=== PATIENT | female | born 1985 | race Caucasian/White ===

== ENCOUNTER 2016-12-02 20:30 | Emergency (ER) | payer BC ==
[2016-12-02 20:41] VITALS: BP 138/96
[2016-12-02] MEDS ORDERED: Penicillin G Benzathine/Procaine 600-600 1.2 Millunits/2 ML Syringe IM ONE (21:19)
--- NOTE | 2016-12-02 21:22 | EDM.PDOC ---
ED HPI GENERAL MEDICAL PROBLEM - General Chief Complaint: General Stated Complaint: BACK PAIN, FEVER, DIZZY Time Seen by Provider: 12/02/16 21:19 Source of Information: Reports: Patient History Limitations: Reports: No limitations - History of Present Illness INITIAL COMMENTS - FREE TEXT/NARRATIVE: been feeling feverish dizzy sore throat passing out worsening LBP (chronic) all day. Left Lower Back Pain Score (Numeric/FACES): 8 - Related Data Allergies Allergy/AdvReac Type Severity Reaction Status Date / Time No Known Allergies Allergy Verified 12/02/16 20:36 Home Meds: Home Meds Gabapentin [Neurontin] 300 mg PO TID 12/02/16 [History] Hydrocodone/Acetaminophen [Hydrocodon-Acetaminophen 5-325] 1 each PO ASDIRECTED PRN 12/02/16 [History] Sertraline HCl [Sertraline HCl] 150 mg PO DAILY 12/02/16 [History] traZODone HCl [Trazodone HCl] 100 mg PO BEDTIME 12/02/16 [History] Past Medical History Musculoskeletal History: Reports: Back pain, chronic Psychiatric History: Reports: Anxiety, Depression - Infectious Disease History Infectious Disease History: Reports: Chicken pox - Past Surgical History Other HEENT Surgeries/Procedures: wisdom teeth GI Surgical History: Reports: Appendectomy Female Surgical History: Reports: section Social & Family History - Family History Family Medical History: Noncontributory - Tobacco Use Smoking Status *Q: Current Every Day Smoker Years of Tobacco use: 2 Packs/Tins Daily: 0.1 - Caffeine Use Caffeine Use: Reports: Coffee, Soda - Recreational Drug Use Recreational Drug Use: No ED ROS GENERAL - Review of Systems Review Of Systems: ROS reveals no pertinent complaints other than HPI. ED EXAM, GENERAL - Physical Exam Exam: See Below Exam Limited By: No limitations General Appearance: alert, WD/WN, anxious, mild distress Ears: normal external exam, normal canal, hearing grossly normal, normal TMs Nose: normal inspection Throat/Mouth: Normal voice, No airway compromise, Inflammation Head: atraumatic Neck: non-tender, full range of motion Respiratory/Chest: no respiratory distress Cardiovascular: regular rate, rhythm GI/Abdominal: soft, non tender Neurological: alert, oriented, normal cognition, normal gait, no motor/sensory deficits Psychiatric: anxious, flat affect, tearful Skin Exam: Warm, Dry Lymphatic: no adenopathy Course - Vital Signs Last Recorded V/S: Last Vital Signs Temp 38.2 C H 12/02/16 20:38 Pulse 136 H 12/02/16 20:38 Resp 24 H 12/02/16 20:38 BP 138/96 H 12/02/16 20:38 Pulse Ox 98 12/02/16 20:38 - Orders/Labs/Meds Labs: Laboratory Tests 12/02/16 12/02/16 Range/Units 20:54 20:54 Urine Color Yellow (YELLOW) Urine Appearance Clear (CLEAR) Urine pH 7.0 (5.0-9.0) Ur Specific [place] 1.020 (1.005-1.030) Urine Protein Trace H (NEGATIVE) Urine Glucose (UA) Negative (NEGATIVE) Urine Ketones Negative (NEGATIVE) Urine Occult Blood Moderate H (NEGATIVE) Urine Nitrite Negative (NEGATIVE) Urine Bilirubin Negative (NEGATIVE) Urine Urobilinogen 0.2 (0.2-1.0) mg/dL Ur Leukocyte Esterase Negative (NEGATIVE) Urine RBC 40-50 H /HPF Urine WBC 0-5 (0-5/HPF) /HPF Ur Epithelial Cells Moderate H /HPF Urine Bacteria Few (0-FEW/HPF) /HPF Urine Mucus Few H /LPF Urine HCG, Qual Negative Meds: Medications Discontinued Medications Generic Name Dose Route Start Last Admin Trade Name Doug PRN Reason Stop Dose Admin Penicillin G Procaine/Benzathine 1.2 millunits 12/02/16 21:19 Bicillin C-R 600/600 IM 12/02/16 21:20 ONETIME ONE - Re-Assessments/Exams Free Text/Narrative Re-Assessment/Exam: 12/02/16 21:24 results discussed with pt. and Pt's current situation also discussed with Pt & friend who feel presently they will go home and let the ABX control the infection and f/u as needed. Departure - Departure Time of Disposition: 21:26 Disposition: Home, Self-Care 01 Condition: good Clinical Impression: Strep throat Instructions: Strep Throat, [id number]-[id number] Forms: ED Department Discharge Additional Instructions: 1) rest 2) avoid solid foods and scratchy foods 3) have popsicle, jello, juice 4) take tylenol or motrin for fever 5) follow up at clinic or recheck as needed rx given: z-collins
== END 2016-12-02 21:45 | disposition home or self-care (01) ==
LOC: DL.ED 20:30
DX: J02.0 Streptococcal pharyngitis (principal); F41.9 Anxiety disorder, unspecified; F32.9 Major depressive disorder, single episode, unspecified; F17.210 Nicotine dependence, cigarettes, uncomplicated; Z90.49 Acquired absence of other specified parts of digestive tract; Z79.899 Other long term (current) drug therapy
CPT/HCPCS: 81001; 81025; 82962; 87430; 96372; 99284; J0558

== ENCOUNTER 2020-03-26 06:31 | Day surgery (SDC) | payer BC ==
[~2020-03-26 06:31] MED LIST: Dextrose 5%-0.45% NaCl 1,000 ML IV SCH; Midazolam 1 MG/ML 2 ML SDV ONE; Sodium Chloride 0.9% 10 ML Syringe FLUSH PRN; fentaNYL 100 MCG/2 ML SDV ONE
[2020-03-26] MEDS ORDERED: Midazolam 1 MG/ML 2 ML SDV IV ONE ×3 (06:32→07:37)
[2020-03-26] MEDS ORDERED: fentaNYL 100 MCG/2 ML SDV IV ONE ×3 (06:32→07:36)
[2020-03-26 09:44] VITALS: BP 115/65; PULSE 88
--- NOTE | 2020-03-26 13:21 | OR ---
DATE: 03/26/2020 PROCEDURE: Esophagogastroduodenoscopy and multiple pinch biopsies. INSTRUMENT USED: [id number] Olympus video panendoscope. PREMEDICATIONS: No oral or topical anesthesia used. Fentanyl 100 mcg intravenous, Versed 2 mg intravenous. Nasal O2 cannula. The procedure was done under pulse oximetry, BP recording, and cardiac monitoring. INDICATION: Diabetic patient with multiple abdominal symptoms, persistent in nature, not responsive to acid suppressants. The patient with known diabetes mellitus. Esophagogastroduodenoscopy is performed for detection of any active erosive lesions, Guan esophagus and/or malignancy also under consideration, H. pylori status to be determined, small bowel biopsies to be obtained for celiac disease if indicated, endoscopic hemostasis therapy if needed. DESCRIPTION OF PROCEDURE: The scope was passed with ease. Adequate visualization of the esophagus was made from proximal to distal areas. No upper esophageal lesions identified. No distal esophageal stricture. No uphill or downhill esophageal varices. No Nicci-Arroyo tear. No evidence of erosive esophagitis by [place] criteria. No esophageal polyp or tumor mass identified. Z-line was seen at around 40 cm distal to the oral verge, configuration consistent with grade 1 by ZAP classification. No proximal gastric varices noted. Gastric fundus examination by retroflexion showed no polypoid lesions. No gastric ulcer, malignant mass, or vascular ectasia identified. Duodenal bulb showed no ulcer. Visualized second part of the duodenum was unremarkable. Multiple pinch biopsies, 4 in number, were taken from different areas of the second part of the duodenum and tissues were also obtained from the duodenal bulb at 9 and 12 o'clock positions and sent for any histopathologic evidence of celiac disease. Multiple pinch biopsies were also taken from the gastric antrum and proximal body and sent for PyloriTek test for H. pylori and histopathology. No bleeding was noted from any of the visualized areas at the completion of examination. Photographs were taken of the duodenal bulb, gastric antrum, fundus, and distal esophagus. IMPRESSION: Normal study. The patient tolerated the procedure well. [facility] /[id number]
== END 2020-03-26 09:50 | disposition home or self-care (01) ==
LOC: DL.ENDO 06:31
PROVIDERS: ATTEND Internal Medicine Gastroenterology
DX: K29.50 Unspecified chronic gastritis without bleeding (principal); E66.09 Other obesity due to excess calories; F41.1 Generalized anxiety disorder; F32.9 Major depressive disorder, single episode, unspecified; R73.9 Hyperglycemia, unspecified; Z90.710 Acquired absence of both cervix and uterus; Z90.49 Acquired absence of other specified parts of digestive tract; Z68.41 Body mass index [BMI] 40.0-44.9, adult
CPT/HCPCS: 87077; J2250; J3010; J7042

== ENCOUNTER 2024-05-25 06:56 | Emergency (ER) | payer OTHER, BC ==
[2024-05-25 07:28] LABS: BASOPHILS PERCENT AUTO 0.5 % (0.0-1.0); EOSINOPHILS PERCENT AUTO 5.9 % (1.0-3.0); HEMOGLOBIN 13.6 g/dL (12.0-16.0); LYMPHOCYTES PERCENT AUTO 44.5 % (20.5-50.1); MEAN CORPUSCULAR HEMOGLOBIN 31.4 pg (27.0-34.0); MEAN CORPUSCULAR HGB CONC 33.2 g/dL (33.0-35.0); MEAN CORPUSCULAR VOLUME 94.7 fL (80-100); MONOCYTES PERCENT AUTO 6.5 % (2-8); NEUTROPHILS PERCENT AUTO 42.6 % (42.2-75.2); PLATELET COUNT,PLT 231 10^3/uL (150-450); RED BLOOD CELL COUNT 4.33 10^6/uL (4.2-5.4); WHITE BLOOD CELL COUNT,WBC 6.3 10^3/uL (5.0-10.0)
[2024-05-25 07:30] VITALS: BP 142/76; PULSE 78
[2024-05-25] MEDS: Sodium Chloride 0.9% 10 ML Syringe FLUSH PRN (07:30)
[2024-05-25] MEDS: LORazepam 2 MG/ML SDV IVPUSH ONE (07:45)
[2024-05-25 07:52] LABS: ALANINE AMINOTRANSFERASE,ALT 26 U/L (14-59); ALBUMIN 3.6 g/dL (3.4-5.0); ALKALINE PHOSPHATASE 77 U/L (46-116); ASPARTATE AMNIOTRANSFERASE,AST 15 U/L (15-37); BILIRUBIN TOTAL 0.3 mg/dL (0.2-1.0); BLOOD UREA NITROGEN,BUN 16 mg/dL (7-18); BUN/CREATININE RATIO 22.2 (No establ ref range); CALCIUM 8.9 mg/dL (8.5-10.1); CARBON DIOXIDE,CO2 26 mmol/L (21-32); CHLORIDE,CL 107 mmol/L (98-107); CREATININE 0.72 mg/dL (0.55-1.02); EST CRCL DRUG DOSING (CG) 108.55 mL/min; GLUCOSE RANDOM 109 mg/dL (70-99); MAGNESIUM 1.7 mg/dL (1.8-2.4); PROTEIN TOTAL,TP 7.1 g/dL (6.4-8.2); SODIUM,NA 141 mmol/L (136-145)
[2024-05-25 07:55] LABS: ESTIMATED GFR 108 mL/min (>=60)
[2024-05-25] MEDS: Amoxicillin/Clavulanate K 875-125 MG Tab PO ONE (07:57)
[2024-05-25] MEDS: Ondansetron 4 MG/2 ML SDV IVPUSH ONE (08:07)
[2024-05-25 08:08] LABS: INR 0.9 (0.9-1.2); PROTHROMBIN TIME 9.6 SEC (9.0-12.0)
[2024-05-25] MEDS: Sodium Chloride 0.9% 1,000 ML IV ONE (08:10)
[2024-05-25] MEDS: Magnesium Sulfate/D5W 1 GM/100 ML BAG IV ONE (08:10)
[2024-05-25] MEDS: Ketorolac 30 MG/ML SDV IVPUSH ONE (08:30)
[2024-05-25] MEDS: Take Home: Amoxicillin/Clavulanate K 875-125 MG Tab, 6 Tab Pack PO ONE (09:22)
== END 2024-05-25 09:27 | disposition home or self-care (01) ==
LOC: DL.ED 06:56
DX: H65.93 Unspecified nonsuppurative otitis media, bilateral (principal); E83.42 Hypomagnesemia; R20.0 Anesthesia of skin; E66.9 Obesity, unspecified; Z68.33 Body mass index [BMI] 33.0-33.9, adult; Z90.49 Acquired absence of other specified parts of digestive tract; Z79.899 Other long term (current) drug therapy
CPT/HCPCS: 36415; 70450; 71046; 80053; 83735; 84484; 85025; 85610; 87081; 87430; 87635; 87804; 93005; 93010; 96365; 96375; 99284; A9270; J1885; J2060; J2405; J3475; J7030; J3490; U0002